=== PATIENT | female | born 1965 | race Caucasian/White ===

== ENCOUNTER 2016-06-01 18:30 | Emergency (ER) | payer OTHER ==
[2016-06-01 18:39] VITALS: BP 157/97; PULSE 80; RESP 16; TEMP 97.9; O2SAT 96
[2016-06-01] MEDS ORDERED: ERTAPENEM 1 GM in NS 100 ML IV ONE (19:35)
[2016-06-01 20:13] LABS: % IMMATURE GRANULYOCYTES 0.2 % (0.0-1.1); ABSOLUTE IMMATURE GRANULOCYTES 0.02 10^3/uL (0.00-0.10); ADD DIFF? NO; ADD MORPH? NO; ADD SCAN? NO; ATYPICAL LYMPHOCYTE FLAG 0 (0-99); FRAGMENT RBC FLAG 0 (0-99); HEMATOCRIT 42.6 % (38.0-47.0); HEMOGLOBIN 15.3 g/dL (12.6-16.3); LEFT SHIFT FLG 0 (0-99); LIPEMIA HEMOLYSIS FLAG 90 (0-99); MEAN CELL HEMOGLOBIN 33.3 pg (27.9-34.1); MEAN CELL HEMOGLOBIN CONCENTR. 35.9 g/dL (32.4-36.7); MEAN CELL VOLUME 92.8 fL (81.5-99.8); MEAN PLATELET VOLUME 10.3 fL (8.7-11.7); PLATELET CLUMPS FLAG 0 (0-99); PLATELET COUNT 186 10^3/uL (150-400); RED BLOOD CELL COUNT 4.59 10^6/uL (4.18-5.33); RED CELL DISTRIBUTION WIDTH 11.4 % (11.5-15.2)
[2016-06-01] MEDS ORDERED: CEPHALEXIN 500MG PREPACK#4 BTL TAKEHOME ONE (20:22)
[2016-06-01 20:23] LABS: SEDIMENTATION RATE 8 MM/HR (0-20)
--- NOTE | 2016-06-01 20:25 | UCPHY ---
H & P Time Seen by Provider: 06/01/16 19:27 Patient Type: Established HPI/ROS: This patient presents with right elbow redness and pain consistent with prior episode of elbow cellulitis. Symptoms started 2 days ago and worsened today. She has been taking ibuprofen 800 mg per 8 hours regular since the onset of her symptoms with partial improvement in discomfort. She has a history of prior elbow cellulitis required IV antibiotics so she is concerned about her current symptoms. ROS: No fevers or chills. No other constitutional symptoms. HEENT: No complaints pulmonary: No complaints cardiovascular: No complaints. Integumentary: No skin rash elsewhere. Musculoskeletal: She denies any bony pain in the affected elbow GI: No vomiting 7 point ROS is otherwise negative Past Medical/Surgical History: Previous elbow cellulitis. No history of right elbow fracture or surgeries. Smoking Status: Never smoked Physical Exam: Physical Exam Vital signs are normal. General: No acute distress HEENT: Atraumatic. Eyes: Pupils equal and react to light. Extraocular motions are intact. Lungs: No respiratory distress. Cardiac: Brisk capillary refill is intact throughout. Pulses are 2+ and symmetric in the affected extremity. Extremities: Atraumatic normal except for right elbow Right elbow: No bony tenderness or effusion. No bursa swelling. She retains full range of motion without pain. There is a 6 x 5 cm area of erythema to the skin extending from the elbow to the proximal forearm with warmth to touch in tenderness. No fluctuance. The erythema is prominent with a fairly well demarcated border. Skin: No rash or pallor. Neuro: Alert with no sensorimotor deficits in the affected extremity. Initial differential diagnosis: Elbow cellulitis, infectious bursitis, doubt septic joint. Constitutional: Initial Vital Signs Temperature (C) 36.6 C 06/01/16 18:31 Heart Rate 80 06/01/16 18:31 Respiratory Rate 16 06/01/16 18:31 Blood Pressure 157/97 H 06/01/16 18:31 O2 Sat (%) 96 06/01/16 18:31 O2 Delivery Mode Room Air Allergies/Adverse Reactions: No Known Allergies Allergy (Verified 06/01/16 18:38) Home Medications: Medication Instructions Recorded Synthroid 10/22/14 Cephalexin [Keflex (*)] 500 mg PO QID #56 cap 06/01/16 MDM/Departure - MDM Medications Given: Discontinued Medications Ertapenem 1 gm/ Sodium (Chloride) 100 mls @ 200 mls/hr IV EDNOW ONE PRN Reason: Protocol Stop: 06/01/16 20:04 Last Admin: 06/01/16 20:00 Dose: 100 mls ED Course/Re-evaluation: IV ertapenem Oral Keflex I discussed the case with Dr. Hesham Mendiola-infectious disease. Given normal CBC in ESR I doubt osteomyelitis or deeper tissue infection. Dr. Mendiola recommends oral antibiotics for this patient with follow up with Infectious Disease if she is not improving or has worsening. Given the possibility of early bursitis of this patient on a 14 day Keflex course. Explain this in some detail the patient. She is also instructed to use warm packs. - Depart Disposition: Home, Routine, Self-Care Clinical Impression: Cellulitis of right elbow Condition: Good Instructions: Cellulitis (ED) Additional Instructions: Diagnosis: Elbow cellulitis Plan: Keflex antibiotic Follow up with Infectious Disease if you're not improving with treatment plan over the next 3-5 days. Ibuprofen and Tylenol for pain as needed. Apply warm packs few times a day until symptoms improve Go to the emergency department for any significant worsening despite the treatment plan. Prescriptions: Cephalexin [Keflex (*)] 500 mg PO QID #56 cap Referrals: NONE *PRIMARY CARE P,. [Primary Care Provider] - As per Instructions Hesham Mendiola MD [Medical Doctor] - As per Instructions - PQRS PQRS Measurement: NA
[2016-06-01 20:26] LABS: ANION GAP 17 mEq/L (8-16); CALCIUM 9.3 mg/dL (8.5-10.4); CARBON DIOXIDE 21 mEq/l (22-31); CHLORIDE 102 mEq/L (97-110); CREATININE 0.7 mg/dL (0.6-1.0); GLOMERULAR FILTRATION RATE > 60; GLUCOSE 79 mg/dL (70-100); POTASSIUM 4.1 mEq/L (3.5-5.2); SODIUM 140 mEq/L (134-144)
== END 2016-06-01 20:45 | disposition home or self-care (01) ==
LOC: CED 18:30
DX: L03.113 Cellulitis of right upper limb (principal)
CPT/HCPCS: 80048-PO; 85025-PO; 85652-PO; 96365-PO; 99214-PO; G0463-PO; J1335